=== PATIENT | female | born 1995 | race Caucasian/White ===

== ENCOUNTER 2021-01-22 00:49 | Emergency (ER) | payer MEDICAID ==
[2021-01-22 02:32] LABS: BASOPHIL 0 % (0-2); EOSINOPHIL 0 % (0-5); HCT 42.9 % (37.0-47.0); HGB 14.2 g/dl (12.5-16.0); LYMPHOCYTE 24.4 % (15-48); MCH 26.2 pg (25.0-31.0); MCHC 33.1 g/dL (32.0-36.0); MONOCYTE 3.9 % (0-12); MPV 10.3 fL (6.0-9.5); NEUTROPHIL 71.4 % (41-80); NRBC 0; PLT 156 K/uL (150-400); RBC 5.43 M/uL (4.20-5.40); RDW 13.1 % (11.5-14.0); WBC 3.6 K/uL (4.0-10.5)
[2021-01-22 02:37] LABS: BILIRUBIN - TOTAL 0.3 mg/dL (0.2-1.0); BUN/CREAT RATIO (CALC) 24.7 RATIO; CREATININE 0.77 mg/dL (0.51-0.95); GLOBULIN (CALCULATION) 3.5 g/dL; POTASSIUM 3.4 mmol/L (3.5-5.1); TOTAL PROTEIN 7.5 g/dL (6.4-8.2)
[2021-01-22] MEDS ORDERED: ZOFRAN4 M1 PO (05:09)
== END 2021-01-22 05:15 | disposition home or self-care (01) ==
LOC: FER 00:49
PROVIDERS: Emergency Medicine
DX: U07.1 COVID-19 (principal)
CPT/HCPCS: 36415; 71045; 71275; 80053; 84484; 85025; 85379; 93005; J2405; J7030; Q9967